=== PATIENT | female | born 1935 | race Caucasian/White ===

== ENCOUNTER 2022-02-18 21:05 | Inpatient (IN) | payer MEDICARE, BC ==
[~2022-02-18] VITALS: Ht 167.6 cm; Wt 69.9 kg
--- NOTE | 2022-02-18 20:30 | NUR ---
Received patient from [facility] via gurney accompanied by 2 EMT's. Awake, alert, very talkative, in no apparent distress. Transferred from [place] to bed with 3 people assist. Noted some tremors on both hands and lower face. Oriented to staffs, room, TV and bed controls/remote. Multiple bruises, skin tears and abrasions noted mostly on the right side. Stitches on right eyebrow intact. Both knees swollen. Routine admission care done. Plan of care initiated. VS taken and recorded.
[2022-02-18 21:12] VITALS: BP 165/77
[2022-02-18] MEDS ORDERED: SIMV10TA98 PO (22:29)
[2022-02-18] MEDS ORDERED: CYAN100085 IM (22:29)
[2022-02-18] MEDS ORDERED: LOSA50TA39 PO (22:29)
[2022-02-18] MEDS ORDERED: ALPR0.5T8 PO (22:29)
[2022-02-18] MEDS ORDERED: GABA600T12 PO (22:29)
[2022-02-18] MEDS ORDERED: ESOM40CA PO (22:29)
[2022-02-18] MEDS ORDERED: ERGO500040 PO (22:29)
[2022-02-18] MEDS ORDERED: PRIM50TA27 PO (22:29)
[2022-02-19] MEDS: GABAPENTIN 300 MG CAPSULE PO SCH ×2 (00:57→20:45)
[2022-02-19] MEDS: SIMVASTATIN 10 MG TABLET PO SCH ×2 (00:57→20:45)
[2022-02-19] MEDS: LOSARTAN POTASSIUM 50 MG TABLET PO SCH ×2 (00:59→09:19)
[2022-02-19] MEDS: ALPRAZOLAM 0.5 MG TABLET PO PRN (00:59)
--- NOTE | 2022-02-19 06:39 | NUR ---
Patient very needy, demanding and always complaining about her room, calling it a "STORAGE ROOM". Attention seeker and very inpatient. Attended all needs. No complaint of pain presented. Minimum to maximum assist.
[2022-02-19] MEDS: REMEDY ESSENTIAL ZINC PASTE 113 GM TOP SCH ×2 (09:19→20:46)
[2022-02-19 11:52] VITALS: BP 139/76
[2022-02-19] MEDS ORDERED: FOLI1TAB94 PO (13:31)
[2022-02-19] MEDS ORDERED: ALEN70TA80 PO (13:31)
[2022-02-19 15:04] LABS: *BILIRUBIN,URIN NEGATIVE (NEGATIVE); *BLOOD, URINE NEGATIVE (NEGATIVE); *CLARITY,URINE CLEAR (CLEAR); *COLOR,URINE YELLOW (YELLOW); *KETONES,URINE 1+ (NEGATIVE); LEUKOCYTE ESTERASE ,URINE NEGATIVE (NEGATIVE); NITRITE, URINE NEGATIVE (NEGATIVE); UGLUCOSE NEGATIVE (NEGATIVE)
[2022-02-19 15:13] LABS: BACTERIA,URINE NONE SEEN /HPF (NONE SEEN); RBC,URINE 0-3 /HPF (0-3); SQUAMOUS EPITHELIAL CELL,UR FEW /HPF (NONE SEEN); WBC,URINE NONE SEEN /HPF (0-3)
[2022-02-19 16:00] VITALS: BP 111/70
--- NOTE | 2022-02-19 18:13 | NUR ---
Patient received care well throughout shift. Patient very demanding during shift, and often forgetful. Patient often needing reorientation and reeducation. Patient with PT/OT evaluation today and needing minimum to moderate assistance. Patient often needing reassurance they will be okay during stay at hospital. Urine sample sent during shift. Pending other results. Bed left in lowest position with call light within reach. Will endorse information to PM nurse.
--- NOTE | 2022-02-19 20:10 | NUR ---
Patient received in bed awake, able to answer questions appropriately, able to follow instructions but very forgetful. In no acute distress. Needs assessed and attended to. Call light placed within easy reach.
[2022-02-19 20:18] VITALS: BP 149/80
[2022-02-20 04:21] VITALS: BP 130/50
--- NOTE | 2022-02-20 06:51 | NUR ---
Patient slept well, easy to arouse able to relate needs to staff. No acute distress noted. No c/o pain. Needs attended. Maintained bed in locked and low position.
[2022-02-20 07:59] VITALS: BP 155/66
[2022-02-20] MEDS ORDERED: ALENDRONATE SODIUM 70 MG TABLET PO SCH (08:45)
[2022-02-20] MEDS ORDERED: GABAPENTIN 100 MG CAPSULE PO SCH (09:00)
[2022-02-20] MEDS: LOSARTAN POTASSIUM 50 MG TABLET PO SCH (09:51)
[2022-02-20] MEDS: FOLIC ACID 1 MG TABLET PO SCH (09:51)
[2022-02-20] MEDS: GABAPENTIN 100 MG CAPSULE PO SCH ×2 (09:51→12:34)
[2022-02-20] MEDS: PRIMIDONE 50 MG TABLET PO SCH ×3 (09:53→16:41)
[2022-02-20] MEDS: REMEDY ESSENTIAL ZINC PASTE 113 GM TOP SCH ×2 (09:59→21:39)
[2022-02-20] MEDS ORDERED: METHYL SALICYLATE/MENTHOL CREAM 28 GM TUBE TOP PRN (15:00)
[2022-02-20 16:11] VITALS: BP 141/71
--- NOTE | 2022-02-20 18:33 | NUR ---
Patient tolerated care well throughout shift. Patient seen by Dr. Zarate and patient able to express frustration. Appropriate orders placed by Doctor for associated continuation of care; x-rays and medication. Awaiting proper placement of patient into another room to have patient closer to nurses station but still be able to receive therapy. Bed left in lowest position with call light within reach. Comfort measures provided. Will endorse information to PM nurse.
--- NOTE | 2022-02-20 19:45 | NUR ---
Received patient in bed awake alert and oriented x3, forgetful. No acute distress noted, denies chest pain. Kept bed in low and locked position. Call light placed within easy reach.
[2022-02-20] MEDS: GABAPENTIN 300 MG CAPSULE PO SCH (20:57)
[2022-02-20] MEDS: SIMVASTATIN 10 MG TABLET PO SCH (20:57)
[2022-02-21 04:47] VITALS: BP 158/75
--- NOTE | 2022-02-21 07:10 | NUR ---
Asleep most of the times since 0, easy to arouse. In no acute distress. No signs of pain or discomfort. Needs attended. Call light kept within easy reach.
[2022-02-21 07:48] VITALS: BP 137/87
[2022-02-21 07:49] LABS: HEMATOCRIT 38.4 % (31.2-41.9); MEAN CORPUSCULAR VOLUME 89.6 fL (75.5-95.3); PLATELET COUNT (AUTO) 189 K/uL (179-408)
[2022-02-21 08:08] LABS: THYROID STIMULATING HORMONE 1.573 mIU/mL (0.358-3.740)
--- NOTE | 2022-02-21 08:08 | NUR ---
INDIVIDUALIZED PLAN OF CARE
[2022-02-21 08:15] LABS: ALANINE AMINOTRANSFERASE 44 U/L (14-59); ALKALINE PHOSPHATASE 69 U/L (50-136); ASPARTATE AMINOTRANSFERASE 43 U/L (15-37); BILIRUBIN,TOTAL 0.3 mg/dL (0.2-1.0); CARBON DIOXIDE 31 mmol/L (21-32); CHLORIDE 105 mmol/L (98-107); CHOLESTEROL 212 mg/dL (<200); CREATININE 0.5 mg/dL (0.6-1.3); GLUCOSE 90 mg/dL (74-106); HDL CHOLESTEROL 68 mg/dL (40-60); PHOSPHOROUS 3.8 mg/dL (2.5-4.9); POTASSIUM 4.1 mmol/L (3.5-5.1); TOTAL PROTEIN, SERUM 6.2 g/dL (6.4-8.2); TRIGLYCERIDES 48 MG/DL (30-150); UREA NITROGEN, BLOOD 15 mg/dL (7-18)
[2022-02-21] MEDS: PRIMIDONE 50 MG TABLET PO SCH ×3 (08:51→16:57)
[2022-02-21] MEDS: LOSARTAN POTASSIUM 50 MG TABLET PO SCH (08:51)
[2022-02-21] MEDS: FOLIC ACID 1 MG TABLET PO SCH (08:51)
[2022-02-21] MEDS: REMEDY ESSENTIAL ZINC PASTE 113 GM TOP SCH ×2 (08:52→20:46)
[2022-02-21 15:51] VITALS: BP 131/86
[2022-02-21] MEDS: ACETAMINOPHEN ES 500 MG TABLET PO PRN (19:58)
[2022-02-21] MEDS: SIMVASTATIN 20 MG TABLET PO SCH (20:45)
[2022-02-21] MEDS: GABAPENTIN 300 MG CAPSULE PO SCH (20:45)
[2022-02-21 20:50] VITALS: BP 112/67
[2022-02-22 04:38] VITALS: BP 138/61
[2022-02-22 08:29] VITALS: BP 156/72
[2022-02-22] MEDS: LOSARTAN POTASSIUM 50 MG TABLET PO SCH (08:57)
[2022-02-22] MEDS: FOLIC ACID 1 MG TABLET PO SCH (08:57)
[2022-02-22] MEDS: PRIMIDONE 50 MG TABLET PO SCH ×3 (08:57→17:36)
[2022-02-22] MEDS: REMEDY ESSENTIAL ZINC PASTE 113 GM TOP SCH ×2 (08:57→20:49)
[2022-02-22] MEDS: ENSURE ENLIVE (VAN) 240 ML LIQUID PO SCH (13:28)
[2022-02-22 16:41] VITALS: BP 115/52
[2022-02-22 20:18] VITALS: BP 139/84
[2022-02-22] MEDS: SIMVASTATIN 20 MG TABLET PO SCH (20:49)
[2022-02-22] MEDS: GABAPENTIN 300 MG CAPSULE PO SCH (20:49)
[2022-02-22] MEDS: ALPRAZOLAM 0.5 MG TABLET PO PRN (20:49)
[2022-02-23 04:15] VITALS: BP 148/70
[2022-02-23 08:05] VITALS: BP 152/62
[2022-02-23] MEDS: PRIMIDONE 50 MG TABLET PO SCH ×3 (08:48→17:16)
[2022-02-23] MEDS: FOLIC ACID 1 MG TABLET PO SCH (08:49)
[2022-02-23] MEDS: LOSARTAN POTASSIUM 50 MG TABLET PO SCH (08:49)
[2022-02-23] MEDS: ENSURE ENLIVE (VAN) 240 ML LIQUID PO SCH (08:49)
[2022-02-23] MEDS: REMEDY ESSENTIAL ZINC PASTE 113 GM TOP SCH ×2 (08:50→21:14)
[2022-02-23] MEDS ORDERED: ENSURE ENLIVE (VAN) 240 ML LIQUID PO SCH (09:00)
[2022-02-23] MEDS: ALPRAZOLAM 0.5 MG TABLET PO PRN ×2 (09:15→21:18)
[2022-02-23] MEDS: ACETAMINOPHEN ES 500 MG TABLET PO PRN (09:15)
--- NOTE | 2022-02-23 11:58 | NUR ---
WOUND CARE CONSULT: PT SLEEPING SOUNDLY AT THIS TIME. PT KNOWN TO HAVE HISTORY OF FALLS, FACIAL DISCOLORATION, SUTURED LACERATION TO RT EYEBROW AREA, RT ARM SKIN TEARS AND HEEL DEEP TISSUE INJURIES, ALL PRESENT ON ADMISSION. DR MARTINEZ AND DR MAC NOTIFIED OF PT REHAB ADMISSION. DISCUSSED SKIN PROTECTION WITH NURSING STAFF. MD IN AGREEMENT WITH PLAN OF CARE.
[2022-02-23 16:30] VITALS: BP 140/70
[2022-02-23 20:00] VITALS: BP 136/78
--- NOTE | 2022-02-23 21:05 | NUR ---
Patient refused to have her right eyebrow stitches removed at this time stating "too soon". Charge Nurse made aware.
[2022-02-23] MEDS: SIMVASTATIN 20 MG TABLET PO SCH (21:13)
[2022-02-23] MEDS: GABAPENTIN 300 MG CAPSULE PO SCH (21:13)
[2022-02-24] MEDS: ACETAMINOPHEN ES 500 MG TABLET PO PRN (00:25)
[2022-02-24 04:00] VITALS: BP 125/62
[2022-02-24 07:54] VITALS: BP 167/74
[2022-02-24] MEDS: PRIMIDONE 50 MG TABLET PO SCH ×3 (08:19→16:40)
[2022-02-24] MEDS: LOSARTAN POTASSIUM 50 MG TABLET PO SCH (08:19)
[2022-02-24] MEDS: FOLIC ACID 1 MG TABLET PO SCH (08:19)
[2022-02-24] MEDS: ENSURE ENLIVE (VAN) 240 ML LIQUID PO SCH (08:20)
[2022-02-24] MEDS: ERGOCALCIFEROL 50,000 UNIT CAPSULE PO SCH (08:21)
[2022-02-24] MEDS: REMEDY ESSENTIAL ZINC PASTE 113 GM TOP SCH ×2 (08:32→20:34)
[2022-02-24 16:19] VITALS: BP 147/72
[2022-02-24] MEDS: GABAPENTIN 300 MG CAPSULE PO SCH (20:33)
[2022-02-24] MEDS: SIMVASTATIN 20 MG TABLET PO SCH (20:34)
[2022-02-24 21:50] VITALS: BP 145/78
[2022-02-24] MEDS: ALPRAZOLAM 0.5 MG TABLET PO PRN (22:25)
[2022-02-25 04:00] VITALS: BP 131/64
[2022-02-25 09:16] VITALS: BP 130/63
[2022-02-25] MEDS: FOLIC ACID 1 MG TABLET PO SCH (09:30)
[2022-02-25] MEDS: PRIMIDONE 50 MG TABLET PO SCH ×3 (09:30→17:16)
[2022-02-25] MEDS: ENSURE ENLIVE (VAN) 240 ML LIQUID PO SCH ×5 (09:34→17:03)
[2022-02-25] MEDS: LOSARTAN POTASSIUM 50 MG TABLET PO SCH (09:34)
[2022-02-25] MEDS: REMEDY ESSENTIAL ZINC PASTE 113 GM TOP SCH ×2 (09:35→20:24)
[2022-02-25] MEDS ORDERED: ARGININE/GLUTAMINE/CALCIUM BMB 1 EACH POWD.PACK PO SCH (10:15)
[2022-02-25] MEDS: ARGININE/GLUTAMINE/CALCIUM BMB 1 EACH POWD.PACK PO SCH (13:42)
--- NOTE | 2022-02-25 16:06 | NUR ---
INTERDISCIPLINARY TEAM CONFERENCE
[2022-02-25 16:58] VITALS: BP 142/76
[2022-02-25 20:10] VITALS: BP 117/58
[2022-02-25] MEDS: GABAPENTIN 300 MG CAPSULE PO SCH (20:23)
[2022-02-25] MEDS: SIMVASTATIN 20 MG TABLET PO SCH (20:23)
[2022-02-25] MEDS: ACETAMINOPHEN ES 500 MG TABLET PO PRN (21:19)
[2022-02-26 04:55] VITALS: BP 101/51
--- NOTE | 2022-02-26 06:36 | NUR ---
Pt slept intermittently throughout the night, easily arousable for care. Complaint of mild pain on right eyebrow, Tylenol PRN given. No significant changes noted. All needs attended. Call light placed within reach. Will endorse to next shift for continuity of care.
[2022-02-26 07:30] VITALS: BP 123/54
[2022-02-26] MEDS: PRIMIDONE 50 MG TABLET PO SCH ×3 (09:05→16:24)
[2022-02-26] MEDS: FOLIC ACID 1 MG TABLET PO SCH (09:05)
[2022-02-26] MEDS: LOSARTAN POTASSIUM 50 MG TABLET PO SCH (09:07)
[2022-02-26] MEDS: ARGININE/GLUTAMINE/CALCIUM BMB 1 EACH POWD.PACK PO SCH (09:07)
[2022-02-26] MEDS: REMEDY ESSENTIAL ZINC PASTE 113 GM TOP SCH ×2 (09:07→21:01)
[2022-02-26] MEDS: ENSURE ENLIVE (VAN) 240 ML LIQUID PO SCH ×2 (09:07→17:22)
[2022-02-26] MEDS: CALCIUM CARBONATE 500 MG TAB.CHEW PO PRN (13:45)
[2022-02-26 16:06] VITALS: BP 112/85
--- NOTE | 2022-02-26 16:57 | NUR ---
patient has been good all day, no complains of pain, no distress, spoke to her son on the phone. Asked for tums for stomach pain because "she ate too much food" as she stated. Other than that, no complains, care is provided, needs are met.
[2022-02-26 20:18] VITALS: BP 144/69
[2022-02-26] MEDS: SIMVASTATIN 20 MG TABLET PO SCH (21:01)
[2022-02-26] MEDS: GABAPENTIN 300 MG CAPSULE PO SCH (21:01)
--- NOTE | 2022-02-26 23:00 | NUR ---
Pt seen and examined by Dr. Saleh with order to remove sutures. Right eyebrow sutures removed, procedure tolerated well by pt. Dressing on RUE also changed.
[2022-02-27 04:18] VITALS: BP 130/55
[2022-02-27 08:00] VITALS: BP 121/52
[2022-02-27] MEDS: FOLIC ACID 1 MG TABLET PO SCH (08:59)
[2022-02-27] MEDS: LOSARTAN POTASSIUM 50 MG TABLET PO SCH (08:59)
[2022-02-27] MEDS: ENSURE ENLIVE (VAN) 240 ML LIQUID PO SCH ×2 (08:59→16:53)
[2022-02-27] MEDS: ARGININE/GLUTAMINE/CALCIUM BMB 1 EACH POWD.PACK PO SCH (09:00)
[2022-02-27] MEDS: REMEDY ESSENTIAL ZINC PASTE 113 GM TOP SCH ×2 (09:00→20:28)
[2022-02-27] MEDS: PRIMIDONE 50 MG TABLET PO SCH ×3 (09:00→20:28)
[2022-02-27 15:18] VITALS: BP 121/79
[2022-02-27] MEDS: ALPRAZOLAM 0.5 MG TABLET PO PRN (16:05)
[2022-02-27] MEDS: SIMVASTATIN 20 MG TABLET PO SCH (20:28)
[2022-02-27] MEDS: GABAPENTIN 300 MG CAPSULE PO SCH (20:28)
[2022-02-27 21:29] VITALS: BP 103/68
[2022-02-28 05:10] VITALS: BP 141/62
[2022-02-28 08:00] VITALS: BP 126/51
[2022-02-28] MEDS: LOSARTAN POTASSIUM 50 MG TABLET PO SCH (09:16)
[2022-02-28] MEDS: FOLIC ACID 1 MG TABLET PO SCH (09:16)
[2022-02-28] MEDS: PRIMIDONE 50 MG TABLET PO SCH ×3 (09:17→18:04)
[2022-02-28] MEDS: ENSURE ENLIVE (VAN) 240 ML LIQUID PO SCH ×2 (09:18→18:05)
[2022-02-28] MEDS: ARGININE/GLUTAMINE/CALCIUM BMB 1 EACH POWD.PACK PO SCH (09:18)
[2022-02-28] MEDS: REMEDY ESSENTIAL ZINC PASTE 113 GM TOP SCH ×2 (09:20→20:57)
[2022-02-28 16:13] VITALS: BP 121/61
--- NOTE | 2022-02-28 20:45 | NUR ---
Patient in bed awake.able to make needs known.Denies pain or discomfort at this time. On Ra. Right eyebrow s/p sutures removed.Area clean and dry. No s/s of infection.Continue safety measures.Reinforced teaching to use call light for assistance.Will continue to monitor.
[2022-02-28] MEDS: GABAPENTIN 300 MG CAPSULE PO SCH (20:52)
[2022-02-28 20:53] VITALS: BP 132/48
[2022-02-28] MEDS: SIMVASTATIN 20 MG TABLET PO SCH (20:53)
[2022-03-01 04:49] VITALS: BP 126/55
[2022-03-01 07:34] VITALS: BP 137/59
[2022-03-01] MEDS: PRIMIDONE 50 MG TABLET PO SCH ×3 (08:18→17:11)
[2022-03-01] MEDS: FOLIC ACID 1 MG TABLET PO SCH (08:19)
[2022-03-01] MEDS: LOSARTAN POTASSIUM 50 MG TABLET PO SCH (08:21)
[2022-03-01] MEDS: ENSURE ENLIVE (VAN) 240 ML LIQUID PO SCH ×2 (08:23→17:11)
[2022-03-01] MEDS: ARGININE/GLUTAMINE/CALCIUM BMB 1 EACH POWD.PACK PO SCH (08:24)
[2022-03-01] MEDS: REMEDY ESSENTIAL ZINC PASTE 113 GM TOP SCH ×2 (08:24→22:20)
[2022-03-01 16:00] VITALS: BP 103/59
--- NOTE | 2022-03-01 19:30 | NUR ---
Received pt awake, alert and orientedx3. Pt in no acute distress. Pt hyperverbal. Safety and comfort provided. Will continue to monitor.
[2022-03-01] MEDS: SIMVASTATIN 20 MG TABLET PO SCH (21:12)
[2022-03-01] MEDS: ALPRAZOLAM 0.5 MG TABLET PO PRN (21:13)
[2022-03-01] MEDS: GABAPENTIN 300 MG CAPSULE PO SCH (21:13)
[2022-03-02 04:00] VITALS: BP 120/55
--- NOTE | 2022-03-02 05:35 | NUR ---
Pt slept intermittently throughout the night, easily arousable for care. Pt given Xanax 0.5mg at 2113H for anxiety and restlessness. After an hour pt calmer. No significant changes noted. All needs attended. Call light placed within reach. Will endorse to next shift for continuity of care.
[2022-03-02] MEDS: PRIMIDONE 50 MG TABLET PO SCH ×3 (08:54→16:47)
[2022-03-02] MEDS: FOLIC ACID 1 MG TABLET PO SCH (08:54)
[2022-03-02] MEDS: LOSARTAN POTASSIUM 50 MG TABLET PO SCH (09:00)
[2022-03-02] MEDS: REMEDY ESSENTIAL ZINC PASTE 113 GM TOP SCH ×2 (09:01→21:09)
[2022-03-02] MEDS: ENSURE ENLIVE (VAN) 240 ML LIQUID PO SCH ×2 (09:01→16:47)
[2022-03-02] MEDS: ARGININE/GLUTAMINE/CALCIUM BMB 1 EACH POWD.PACK PO SCH ×2 (09:01→16:47)
[2022-03-02] MEDS: CALCIUM CARBONATE 500 MG TAB.CHEW PO PRN (10:57)
[2022-03-02 11:36] VITALS: BP 128/69
[2022-03-02 15:19] VITALS: BP 117/59
[2022-03-02 20:00] VITALS: BP 121/57
[2022-03-02] MEDS: ALPRAZOLAM 0.5 MG TABLET PO PRN (21:08)
[2022-03-02] MEDS: SIMVASTATIN 20 MG TABLET PO SCH (21:08)
[2022-03-02] MEDS: GABAPENTIN 300 MG CAPSULE PO SCH (21:08)
[2022-03-03 07:00] VITALS: BP 115/49
--- NOTE | 2022-03-03 09:00 | NUR ---
PATIENT IS AWAKE ALERT AND ORIENTED DENIES PAIN OR DISCOMFORTS AT THIS TIME TX IN PROGRESS TO MULTIPLE SKIN TEAR AREAS ORDERED DENIES PAIN OR DISCOMFORTS CALL LIGHTS AND PERSONAL BELONGINGS ARE WITHIN EASY REACH WILL CONTINUE TO OBSERVE.
[2022-03-03] MEDS: FOLIC ACID 1 MG TABLET PO SCH (09:47)
[2022-03-03] MEDS: PRIMIDONE 50 MG TABLET PO SCH ×3 (09:47→17:44)
[2022-03-03] MEDS: LOSARTAN POTASSIUM 50 MG TABLET PO SCH (09:47)
[2022-03-03] MEDS: ERGOCALCIFEROL 50,000 UNIT CAPSULE PO SCH (09:50)
[2022-03-03] MEDS: REMEDY ESSENTIAL ZINC PASTE 113 GM TOP SCH ×2 (09:57→20:03)
[2022-03-03] MEDS: ARGININE/GLUTAMINE/CALCIUM BMB 1 EACH POWD.PACK PO SCH ×2 (09:57→17:44)
[2022-03-03] MEDS: ENSURE ENLIVE (VAN) 240 ML LIQUID PO SCH ×2 (09:57→17:44)
[2022-03-03 11:20] VITALS: BP 100/51
[2022-03-03 15:40] VITALS: BP 130/84
[2022-03-03] MEDS: SIMVASTATIN 20 MG TABLET PO SCH (20:02)
[2022-03-03] MEDS: GABAPENTIN 300 MG CAPSULE PO SCH (20:02)
[2022-03-03] MEDS: ALPRAZOLAM 0.5 MG TABLET PO PRN (20:02)
[2022-03-03 20:12] VITALS: BP 125/52
[2022-03-04 04:29] VITALS: BP 122/59
--- NOTE | 2022-03-04 06:10 | NUR ---
Very talkative,and needy. Wound care done to affected areas after picture taking. Slept late. All needs attended and met. No significant event reported all night.
[2022-03-04 08:00] VITALS: BP 121/56
[2022-03-04] MEDS: ARGININE/GLUTAMINE/CALCIUM BMB 1 EACH POWD.PACK PO SCH (08:49)
[2022-03-04] MEDS: ENSURE ENLIVE (VAN) 240 ML LIQUID PO SCH (08:49)
[2022-03-04 08:51] VITALS: BP 121/56
[2022-03-04] MEDS: PRIMIDONE 50 MG TABLET PO SCH ×2 (08:51→12:16)
[2022-03-04] MEDS: REMEDY ESSENTIAL ZINC PASTE 113 GM TOP SCH (08:51)
[2022-03-04] MEDS: LOSARTAN POTASSIUM 50 MG TABLET PO SCH (08:51)
[2022-03-04] MEDS: FOLIC ACID 1 MG TABLET PO SCH (08:51)
--- NOTE | 2022-03-04 09:57 | NUR ---
Patient to be discharged at 1400 by [facility] to home.
--- NOTE | 2022-03-04 14:45 | NUR ---
Patient discharged from unit at 1445. Discharge education provided.
== END 2022-03-04 14:46 | disposition home health service (06) | DRG 74 ==
PROVIDERS: ADMIT Physical Medicine & Rehabilitation Pain Medicine; ATTEND Physical Medicine & Rehabilitation Pain Medicine
DX: G62.9 Polyneuropathy, unspecified (principal); D68.59 Other primary thrombophilia; S01.111D Laceration without foreign body of right eyelid and periocular area, subsequent encounter; R29.6 Repeated falls; S40.811D Abrasion of right upper arm, subsequent encounter; S80.812D Abrasion, left lower leg, subsequent encounter; S80.811D Abrasion, right lower leg, subsequent encounter; W01.0XXD Fall on same level from slipping, tripping and stumbling without subsequent striking against object, subsequent encounter; Z91.81 History of falling; I10 Essential (primary) hypertension; E78.5 Hyperlipidemia, unspecified; R26.0 Ataxic gait; K21.9 Gastro-esophageal reflux disease without esophagitis; G25.0 Essential tremor; I70.90 Unspecified atherosclerosis; Z20.822 Contact with and (suspected) exposure to COVID-19; M19.90 Unspecified osteoarthritis, unspecified site; M81.0 Age-related osteoporosis without current pathological fracture; G89.29 Other chronic pain; R53.81 Other malaise; S90.32XD Contusion of left foot, subsequent encounter; S90.31XD Contusion of right foot, subsequent encounter; X58.XXXD Exposure to other specified factors, subsequent encounter
CPT/HCPCS: 36415; 73030; 73502; 73610; 73630; 83735; 84100; 84443; 85025; 87086; 97161; 97535-GO-CO; A6209; A9150

== ENCOUNTER 2023-02-07 15:56 | Inpatient (IN) | payer MEDICARE, BC ==
[~2023-02-07] VITALS: Ht 172.7 cm; Wt 54.4 kg
[~2023-02-07 15:56] MED LIST: ACET-2154 PO; ALEN70TA3 PO; BISA10SU61 RC; CARB1TAB21 PO; DICL100G31 TP; DOCU100C36 PO; ESOM40CA PO; FOLI1TAB94 PO; LOSA50TA39 PO; MAGN400O6 PO; MEGE400O4 PO; MELA3CAP2 PO; MULT-594 PO; NA P133E RC; PRIM50TA27 PO; ROPI1TAB6 PO; SIMV10TA98 PO; TEMA15CA PO
[2023-02-07] MEDS ORDERED: CRAN400C PO (16:54)
[2023-02-07 17:24] LABS: HEMATOCRIT 41.1 % (31.2-41.9); MEAN CORPUSCULAR HEMOGLOBIN 28.9 uug (24.7-32.8); PLATELET COUNT (AUTO) 245 K/uL (179-408)
--- NOTE | 2023-02-07 17:30 | NUR ---
BIB ambulance from facility, placed into room #2, placed on monitor, informed of plan of care at this time. No s/s of any distress noted at this time. Lab at bedside for draw, #20g established in left forearm, unable to draw blood at this time. Patient is alert and orient x3, no voiced c/o pain or discomfort at this time. Patient noted to have scattered bruises to BUE, LLE with scabbed areas noted, will continue to monitor.
[2023-02-07 17:32] LABS: CARBON DIOXIDE 28 mmol/L (21-32); CHLORIDE 101 mmol/L (98-107); CREATININE 0.4 mg/dL (0.6-1.3); POTASSIUM 3.9 mmol/L (3.5-5.1); UREA NITROGEN, BLOOD 12 mg/dL (7-18)
[2023-02-07 17:38] LABS: ALANINE AMINOTRANSFERASE 20 U/L (14-59); ALKALINE PHOSPHATASE 79 U/L (50-136); ASPARTATE AMINOTRANSFERASE 25 U/L (15-37); BILIRUBIN,DIRECT 0.1 mg/dL (0.0-0.2); BILIRUBIN,TOTAL 0.4 mg/dL (0.2-1.0); TOTAL PROTEIN, SERUM 7.1 g/dL (6.4-8.2)
--- NOTE | 2023-02-07 17:47 | NUR ---
Radiology at bedside.
[2023-02-07 17:59] LABS: THYROID STIMULATING HORMONE 2.043 mIU/mL (0.358-3.740)
--- NOTE | 2023-02-07 18:51 | NUR ---
Assisted on bedpan, urine collected and sent to lab.
[2023-02-07 18:54] LABS: *BILIRUBIN,URIN NEGATIVE (NEGATIVE); *BLOOD, URINE 1+ (NEGATIVE); *CLARITY,URINE SLIGHTLY CLOUDY (CLEAR); *COLOR,URINE YELLOW (YELLOW); *KETONES,URINE 2+ (NEGATIVE); *UROBILINOGEN,URINE 0.2 E.U./dl (NORMAL); LEUKOCYTE ESTERASE ,URINE 1+ (NEGATIVE); NITRITE, URINE POSITIVE (NEGATIVE); UGLUCOSE NEGATIVE (NEGATIVE)
--- NOTE | 2023-02-07 18:54 | NUR ---
Requested and given water.
--- NOTE | 2023-02-07 19:03 | NUR ---
Report given to Kristal, accepting nurse, patient remains stable.
--- NOTE | 2023-02-07 19:05 | NUR ---
REPORT RECEIVED FROM DASHA PARRISH. PT STABLE ON MONITOR WITH NAD OBSERVED.
[2023-02-07] MEDS ORDERED: CEFTRIAXONE /D5W 50ML IVPB **ER PYXIS IV ONE (20:37)
--- NOTE | 2023-02-07 20:38 | NUR ---
Dr. Jacinto on panel call with Clayton Bone NP.
[2023-02-07] MEDS ORDERED: CEFTRIAXONE 1 G in IV DEXTROSE 5% 50 ML IV ONE (20:45)
[2023-02-07] MEDS: SIMVASTATIN 10 MG TABLET PO SCH (21:00)
[2023-02-07] MEDS ORDERED: MAGNESIUM HYDROXIDE 30 ML LIQUID UDC PO PRN (21:00)
[2023-02-07] MEDS ORDERED: FLEET ENEMA 133 ML BOTTLE RC PRN (21:00)
[2023-02-07] MEDS: DOCUSATE SODIUM 100 MG CAPSULE PO SCH (21:00)
--- NOTE | 2023-02-07 21:15 | NUR ---
REPORT GIVEN TO CHERIE PARRISH.
--- NOTE | 2023-02-07 21:25 | NUR ---
PT PULLED HER IV OUT. WILL INSERT A NEW ONE.
[2023-02-07 22:00] VITALS: BP 155/86; TEMP 98.4; O2SAT 96
[2023-02-07] MEDS: PRIMIDONE 50 MG TABLET PO SCH (22:00)
--- NOTE | 2023-02-07 22:00 | NUR ---
Pt received from ER by brittni Pt arrived to room 311 with Kristal BUSCH-RN without IV access. Pt very agitated at this time not letting go her belongings. Refusing IV insertio. Pt will rest and in AM will try insertion. Pt assisted comfortable and fluids offered no aspiration observed. Pt has multiple bruises on bilateral arms. Continue monitoring condition WT 54 kg, VS 98.4 75 18 96% on RA, 155/86. Pt denies any pain at this time.
--- NOTE | 2023-02-07 22:00 | NUR ---
Pt. admitted to M/S 311 , under care of Dr. HILLMAN Belongs List completed
[2023-02-07] MEDS: MELATONIN 3 MG TABLET PO SCH (22:21)
[2023-02-07 23:41] LABS: BACTERIA,URINE MODERATE /HPF (NONE SEEN); SQUAMOUS EPITHELIAL CELL,UR FEW /HPF (NONE SEEN)
--- NOTE | 2023-02-08 | NUR ---
Called Board of [facility] at [phone].to get information about dates of PNA/Flu vaccination, Covid-19 vaccination dates, and power of prosecuting attorney or next of pino information, no answer left a message, morning nurse will follow up.
[2023-02-08 04:00] VITALS: BP 148/63; TEMP 97.6; O2SAT 96
--- NOTE | 2023-02-08 05:11 | NUR ---
Pt slept well during the night without interruption, HL placed n her right arm, patent for next Rocephin dose tonight. Pt incontinent in urine, tolerates well PO fluids, Pt observed bullock calm and cooperative in AM. Morning medication given, endorse care to incoming nurse
[2023-02-08] MEDS: PANTOPRAZOLE SODIUM 40 MG TABLET.DR PO SCH (06:15)
[2023-02-08] MEDS: PRIMIDONE 50 MG TABLET PO SCH ×3 (06:15→22:00)
[2023-02-08 06:38] LABS: HEMATOCRIT 41.5 % (31.2-41.9); MEAN CORPUSCULAR HEMOGLOBIN 29.3 uug (24.7-32.8); MEAN CORPUSCULAR VOLUME 86.3 fL (75.5-95.3); PLATELET COUNT (AUTO) 235 K/uL (179-408)
[2023-02-08 07:27] LABS: ALANINE AMINOTRANSFERASE 40 U/L (14-59); ALKALINE PHOSPHATASE 78 U/L (50-136); ASPARTATE AMINOTRANSFERASE 27 U/L (15-37); BILIRUBIN,TOTAL 0.4 mg/dL (0.2-1.0); CARBON DIOXIDE 28 mmol/L (21-32); CHLORIDE 100 mmol/L (98-107); CHOLESTEROL 178 mg/dL (<200); CREATININE 0.4 mg/dL (0.6-1.3); HDL CHOLESTEROL 75 mg/dL (40-60); MAGNESIUM 1.6 mg/dL (1.8-2.4); PHOSPHOROUS 3.2 mg/dL (2.5-4.9); POTASSIUM 3.8 mmol/L (3.5-5.1); TOTAL PROTEIN, SERUM 7.2 g/dL (6.4-8.2); TRIGLYCERIDES 38 MG/DL (30-150); UREA NITROGEN, BLOOD 9 mg/dL (7-18)
--- NOTE | 2023-02-08 07:45 | NUR ---
RECEIVED IN BED AWAKE ALERT AND ORIENTED DENIES PAIN OR DISCOMFORTS AT THIS TIME ON ROOM AIR WITH NO SHORTNESS OF BREATH RIGHT FOREARM WITH HEPLOCK INTACT WRAPPED WITH KIRLIX FOR SAFETY CALL LIGHT AND PERSOANL BELONGINGS ARE WITHIN EASY REACH AT THIS TIME WILL CONTINUE TO OBSERVE.
[2023-02-08 07:55] LABS: IRON, SERUM 70 ug/dL (50-175)
[2023-02-08] MEDS: MULTIVITAMINS,THERAPEUTIC TABLET PO SCH (08:34)
[2023-02-08] MEDS: FOLIC ACID 1 MG TABLET PO SCH (08:35)
[2023-02-08] MEDS: ropiniROLE 1 MG TABLET PO SCH (08:35)
[2023-02-08] MEDS: LOSARTAN POTASSIUM 50 MG TABLET PO SCH (08:36)
[2023-02-08] MEDS: CARBIDOPA/LEVODOPA 25-100MG TABLET PO SCH ×3 (08:45→17:11)
--- NOTE | 2023-02-08 08:47 | NUR ---
PATIENT REFUSED TO TAKE SINEMET STATED THAT HS EDOES NOT HAVE PARKINSONS DISEASE ALL ATTEMPTS TO CONVINCE HER FAILED WILL NOTIFY DR SIMS.
--- NOTE | 2023-02-08 09:20 | NUR ---
PATIENT IS REQUESTING FOR PUREED DIET STATED ITS DIFFICULT FOR HER TO TOLERATED HER SOFT DIET MD NOTIFIED WITH ORDER TO SWITCH TO PUREED DIET STARTING LUNCH AND NOTED.
[2023-02-08] MEDS ORDERED: MAGNESIUM SULFATE/D5W 100 ML IV SCH (10:00)
[2023-02-08 11:36] VITALS: BP 117/75; TEMP 98.4; O2SAT 100
--- NOTE | 2023-02-08 15:00 | NUR ---
VERY PARANOID TALKS INCESSANTLY REPEATS SELF OVER AND OVER AGAIN REASSURED WAS SEEN BY DR WALSH WITH NO NEW ORDERS AT THIS TIME.
[2023-02-08 16:41] VITALS: BP 133/67; TEMP 97.4; O2SAT 98
--- NOTE | 2023-02-08 18:00 | NUR ---
MAGNESSIUM LEVEL IS 1.6 WITH REPLACEMENT ORDER AND NOTED.SEEN BY DR SIMS AND DR NATHAN SPOKE WITH PATIENTS DAUGHTER AT LENGTH ON THE PHONE RE PLAN OF CARE WILL CONTINUE TO OBSERVE.
--- NOTE | 2023-02-08 19:50 | NUR ---
PATIENT AWAKE IN BED. YELLING AND SCREAMING. VERY AGITATED. PULLING ON HER IV, WHICH DISLODGED AND NOTED TO BE LEAKING. PATIENT IS VERY CONFUSED AND UNABLE TO REDIRECT. NOTIFIED MACHINE PACKAGE SEALER.
[2023-02-08] MEDS: LORAZEPAM 2 MG/1 ML VIAL IV PRN (19:54)
--- NOTE | 2023-02-08 20:00 | NUR ---
NEW IV STARTED TO LEFT FA. PATIENT GIVEN ATIVAN 0.5MG IV PRN PER TRAVEL SERVICE CONSULTANT FOR AGITATION. VS WNL. WILL CONTINUE TO MONITOR AND ASSESS. BED ALARM ON.
[2023-02-08 20:12] VITALS: BP 128/88; TEMP 98.2; O2SAT 96
[2023-02-08] MEDS: DOCUSATE SODIUM 100 MG CAPSULE PO SCH (20:51)
[2023-02-08] MEDS: MELATONIN 3 MG TABLET PO SCH (20:51)
[2023-02-08] MEDS: CEFTRIAXONE 1 G in IV DEXTROSE 5% 50 ML IV SCH (20:52)
[2023-02-08] MEDS: SIMVASTATIN 10 MG TABLET PO SCH (20:58)
[2023-02-08] MEDS ORDERED: DOCUSATE SODIUM 250 MG CAPSULE PO SCH (21:00)
--- NOTE | 2023-02-08 21:30 | NUR ---
PATIENT ASLEEP IN BED. NO RESP. DISTRESS NOTED. PATIENT UNABLE TO TAKE HS MEDICATIONS AT THIS TIME.
[2023-02-09 04:25] VITALS: BP 124/76; TEMP 98.3; O2SAT 95
[2023-02-09] MEDS: PANTOPRAZOLE SODIUM 40 MG TABLET.DR PO SCH (06:21)
[2023-02-09] MEDS: PRIMIDONE 50 MG TABLET PO SCH ×3 (06:21→21:28)
--- NOTE | 2023-02-09 08:00 | NUR ---
AWAKE ALERT BUT CONFUSED X3, INCOHERENT MOST OF THE MINE, RELUCTANT WITH MOST CARE. REQUIRES REALITY REORIENTATION. TOTAL MIN MAX ASSIST IN ALL AREAS OF ADLS. CLOSELY MONITORED
[2023-02-09] MEDS: CARBIDOPA/LEVODOPA 25-100MG TABLET PO SCH ×3 (08:24→17:09)
[2023-02-09] MEDS: MULTIVITAMINS,THERAPEUTIC TABLET PO SCH (08:25)
[2023-02-09] MEDS: ropiniROLE 1 MG TABLET PO SCH (08:25)
[2023-02-09] MEDS: FOLIC ACID 1 MG TABLET PO SCH (08:25)
[2023-02-09] MEDS: LOSARTAN POTASSIUM 50 MG TABLET PO SCH (08:25)
[2023-02-09 11:31] VITALS: BP 125/86; TEMP 97.5; O2SAT 98
--- NOTE | 2023-02-09 13:03 | NUR ---
WOUND CARE CONSULT: PT PRESENTS WITH RASHES TO BREASTFOLDS, BUTTOCKS, PERINEUM AND INNER THIGHS. PT WAS PREVIOUSLY AGITATED AND UNCOOPERATIVE PER NURSING STAFF. DISCUSSED SKIN PROTECTION AND RASH CARE WITH NURSING STAFF. IN AGREEMENT WITH PLAN OF CARE. Addendum: 02/09/23 at 1304 by ARCHANA MCGUIRE RN Amended: Links added.
--- NOTE | 2023-02-09 15:39 | NUR ---
Clinical SW Note: Social work consult was called to determine whether or not there is a DPOA for this patient. Pt presents as confused and was preoccupied with topics that did not appear to make sense. Pt required constant redirection during this SWs assessment. Per nurse Cabrera, received DPOA paperwork from patients sonGonzalo [phone] and he is the sole power of production machine tender for this patient. DPOA is active. Paperwork was placed inside the front of the chart. Per Gonzalo, patients daughterLaila does not have authority to make any decisions nor will he allow her to be consulted. Per case managers, Stacie Sandoval of [facility] [place] [facility] are accepting the patient to return once she is stable. Case management will need to obtain permission from DPOA regarding placement at discharge. SW will continue to follow-up and will provide assistance and guidance as needed. Report given to Deborah javed.
--- NOTE | 2023-02-09 16:28 | NUR ---
CONTINUE PLAN OF CARE, PHYSICAL THERAPY ORDERED. SEE NOTES
[2023-02-09 16:30] VITALS: BP 125/85; TEMP 97.8; O2SAT 94
[2023-02-09] MEDS: LORAZEPAM 2 MG/1 ML VIAL IV PRN (17:09)
[2023-02-09] MEDS: CLOTRIMAZOLE 1% CREAM 30 GM TUBE TOP SCH (17:11)
--- NOTE | 2023-02-09 19:30 | NUR ---
Received patient awake verbally responsive, patient calm and cooperative with care at this time, hand mittens in place, multiple episode of trying of removes IV lines, restless in bed, continue to re orient patient, denies pain at this time, kept clean and dry. cont to monitor.
[2023-02-09 20:00] VITALS: BP 110/64; TEMP 98; O2SAT 95
[2023-02-09] MEDS: CEFTRIAXONE 1 G in IV DEXTROSE 5% 50 ML IV SCH (20:51)
[2023-02-09] MEDS: SIMVASTATIN 10 MG TABLET PO SCH (20:52)
[2023-02-09] MEDS: DOCUSATE SODIUM 100 MG CAPSULE PO SCH (20:52)
[2023-02-09] MEDS: MELATONIN 3 MG TABLET PO SCH (20:53)
[2023-02-10 04:00] VITALS: BP 104/61; TEMP 97.8; O2SAT 95
[2023-02-10] MEDS: LORAZEPAM 2 MG/1 ML VIAL IV PRN ×2 (04:19→21:19)
--- NOTE | 2023-02-10 05:09 | NUR ---
Patient awake agitated, trashing both arms, tries pulled out iv lines, yelling and screaming, kept clean and dry, offer food and water but refused, given ativan 0.5mg iv for severe agitation, recheck hand mittens for placement and circulation, patient has small skin tear on right wrist results of agitation and thrashing both arms. service liaison representative Derrick notify.
[2023-02-10] MEDS: PRIMIDONE 50 MG TABLET PO SCH ×3 (05:55→21:11)
[2023-02-10] MEDS ORDERED: ALENDRONATE SODIUM 70 MG TABLET PO SCH (06:00)
[2023-02-10] MEDS: PANTOPRAZOLE SODIUM 40 MG TABLET.DR PO SCH (06:06)
[2023-02-10 07:22] LABS: HEMATOCRIT 39.7 % (31.2-41.9); MEAN CORPUSCULAR HEMOGLOBIN 29.5 uug (24.7-32.8); MEAN CORPUSCULAR VOLUME 87.5 fL (75.5-95.3); PLATELET COUNT (AUTO) 222 K/uL (179-408)
[2023-02-10 07:40] LABS: CARBON DIOXIDE 30 mmol/L (21-32); CHLORIDE 101 mmol/L (98-107); CREATININE 0.4 mg/dL (0.6-1.3); POTASSIUM 3.6 mmol/L (3.5-5.1); UREA NITROGEN, BLOOD 10 mg/dL (7-18)
[2023-02-10 08:00] VITALS: BP 148/79; TEMP 98; O2SAT 95
--- NOTE | 2023-02-10 08:00 | NUR ---
Received patient lying in bed awake, alert, cooperative at this time with mittens on both hands. IV site on RFA g.20 intact and clean No signs of distress, no SOB Vital signs taken and recorded Due medications given Observed accordingly, attended
[2023-02-10] MEDS: CLOTRIMAZOLE 1% CREAM 30 GM TUBE TOP SCH ×2 (08:49→17:15)
[2023-02-10] MEDS: LOSARTAN POTASSIUM 50 MG TABLET PO SCH (08:49)
[2023-02-10] MEDS: MULTIVITAMINS,THERAPEUTIC TABLET PO SCH (08:49)
[2023-02-10] MEDS: CARBIDOPA/LEVODOPA 25-100MG TABLET PO SCH ×3 (08:49→17:14)
[2023-02-10] MEDS: ropiniROLE 1 MG TABLET PO SCH (08:49)
[2023-02-10] MEDS: FOLIC ACID 1 MG TABLET PO SCH (08:49)
--- NOTE | 2023-02-10 10:31 | NUR ---
Seen patient lying comfortably in bed, calm and resting. Mittens taken off, observed patient from time to time.
[2023-02-10 11:54] VITALS: BP 129/83; TEMP 98.4; O2SAT 96
[2023-02-10] MEDS: SERTRALINE HCL 50 MG TABLET PO SCH (13:10)
--- NOTE | 2023-02-10 13:30 | NUR ---
Seen by physical therapist Due medications given Mittens taken off and observed, patient is cooperative and calm at this time Needs attended
[2023-02-10 16:00] VITALS: BP 132/61; TEMP 97.4; O2SAT 95
--- NOTE | 2023-02-10 18:35 | NUR ---
Patient's mittens was taken off, patient listen to simple commands, calm and cooperative Observed patient accordingly, provided safety measures Observed for behavioral changes Needs attended
--- NOTE | 2023-02-10 19:00 | NUR ---
Received patient awake but with episode of confusion, no complain of pain, a friend at bedside. Patient calm and resting on in bed, patient has multiple episode of asking to removed to IV lines, continue to reorient, cont to monitor.
[2023-02-10 20:15] VITALS: BP 122/81; TEMP 98.2; O2SAT 95
[2023-02-10] MEDS: DOCUSATE SODIUM 100 MG CAPSULE PO SCH (21:11)
[2023-02-10] MEDS: SIMVASTATIN 10 MG TABLET PO SCH (21:11)
[2023-02-10] MEDS: MELATONIN 3 MG TABLET PO SCH (21:12)
[2023-02-10] MEDS: CEFTRIAXONE 1 G in IV DEXTROSE 5% 50 ML IV SCH (21:13)
--- NOTE | 2023-02-10 21:50 | NUR ---
Patient restless kept asking to remove IV lines, orient patient that she needs it for IV antibiotic as ordered. Patient awake with confusion, unable to follow explanation due to mental health condition. Patient offered food and water, kept clean and dry but not effective, given ativan IV as ordered with help after 30 minutes, patient calm and cooperative with the care. cont to monitor.
[2023-02-10 21:52] VITALS: BP 147/78; O2SAT 96
[2023-02-11] VITALS (7 sets, daily range): BP systolic 125–173; BP diastolic 56–90; TEMP 97.1–98.2; O2SAT 94–97
[2023-02-11] MEDS: ACETAMINOPHEN 325 MG TABLET PO PRN ×2 (06:03→16:37)
[2023-02-11] MEDS: PANTOPRAZOLE SODIUM 40 MG TABLET.DR PO SCH (06:03)
[2023-02-11] MEDS: PRIMIDONE 50 MG TABLET PO SCH ×3 (06:03→22:29)
--- NOTE | 2023-02-11 06:46 | NUR ---
Patient awake, forgetfullness, patient talks about her past but not clear due to patient jumping from one topic to another topic, patient has flight of ideas and does not connect. Patient verbally responsive, no sob no chest pain, patient wanted to go home today, patient verbalized wanted her iv lines out, no further episode of climbing out of bed. cont to monitor.
[2023-02-11 07:09] LABS: HEMATOCRIT 39.6 % (31.2-41.9); MEAN CORPUSCULAR HEMOGLOBIN 29.4 uug (24.7-32.8); MEAN CORPUSCULAR VOLUME 87.2 fL (75.5-95.3); PLATELET COUNT (AUTO) 220 K/uL (179-408)
[2023-02-11 07:28] LABS: CARBON DIOXIDE 33 mmol/L (21-32); CHLORIDE 101 mmol/L (98-107); CREATININE 0.4 mg/dL (0.6-1.3); POTASSIUM 3.9 mmol/L (3.5-5.1); UREA NITROGEN, BLOOD 7 mg/dL (7-18)
[2023-02-11] MEDS: LOSARTAN POTASSIUM 50 MG TABLET PO SCH (08:25)
[2023-02-11] MEDS: ropiniROLE 1 MG TABLET PO SCH (08:25)
[2023-02-11] MEDS: FOLIC ACID 1 MG TABLET PO SCH (08:26)
[2023-02-11] MEDS: CARBIDOPA/LEVODOPA 25-100MG TABLET PO SCH ×3 (08:26→16:37)
[2023-02-11] MEDS: CLOTRIMAZOLE 1% CREAM 30 GM TUBE TOP SCH ×2 (08:26→17:04)
[2023-02-11] MEDS: MULTIVITAMINS,THERAPEUTIC TABLET PO SCH (08:26)
[2023-02-11] MEDS: SERTRALINE HCL 50 MG TABLET PO SCH (13:17)
--- NOTE | 2023-02-11 14:54 | NUR ---
Received patient lying in bed awake, alert, forgetful and confused with flights of ideas No signs of distress, no SOB. Vital signs taken and recorded Due medications given Observed accordingly, needs attended
[2023-02-11] MEDS: CLONIDINE HCL 0.1 MG TABLET PO SCH ×2 (16:37→22:37)
--- NOTE | 2023-02-11 16:37 | NUR ---
Patient blood pressure is high 155/89 repeated BP 173/90, informed Heather Andres FILLER SHREDDER MACHINE and ordered Clonidine 0.1mg q8 for BP>150. Medication given and recorded as ordered. Observed patient for any untoward signs and symptoms.
--- NOTE | 2023-02-11 19:35 | NUR ---
Received patient in bed, awake with confusion, constantly talking about different topic about her past, but it's hard to understand due patient jumps from story to another. re orient patient but not effective, Patient has multiple attempt of pulling out IV lines, frequent visual check done, cont to monitor.
[2023-02-11] MEDS: MELATONIN 3 MG TABLET PO SCH (20:21)
[2023-02-11] MEDS: CEFTRIAXONE 1 G in IV DEXTROSE 5% 50 ML IV SCH (20:21)
[2023-02-11] MEDS: SIMVASTATIN 10 MG TABLET PO SCH (20:21)
[2023-02-11] MEDS: DOCUSATE SODIUM 100 MG CAPSULE PO SCH (20:22)
[2023-02-11] MEDS: LORAZEPAM 2 MG/1 ML VIAL IV PRN (20:38)
--- NOTE | 2023-02-11 20:40 | NUR ---
Patient agitated, yelling and continuously call out the staff to removed her IV lines, check patient IV line, and its in place, no infiltration noted, kept clean dry, reposition, offer food and water but not effective, Patient confused and uncooperative with care, resistive to care, given Ativan IV as ordered, cont to monitor.
--- NOTE | 2023-02-12 | NUR ---
Patient asleep, no s/s of sob , no s/s of chest pain, IV site patent and intact, no s/s of infiltration noted, patient has paper thin skin, admitted with multiple bruise on both arms, hand, ativan iv effective at this time, kept clean dry and comfortable. cont to monitor.
[2023-02-12 04:00] VITALS: BP 149/76; TEMP 97.3; O2SAT 93
--- NOTE | 2023-02-12 04:20 | NUR ---
Patient complaining of burning on IV site, wanted IV lines to removed, patient gets agitated yelling screaming, check IV site with some redness, removed IV lines as per request, tries to reinsert new one but refused, will cont to encourage.
[2023-02-12] MEDS: ACETAMINOPHEN 325 MG TABLET PO PRN (04:44)
--- NOTE | 2023-02-12 05:53 | NUR ---
Patient awake with confusion, refused to has another IV site done, patient gets agitated, resistive to care, given Tylenol 650 mg via dariana pudding, cont to offer IV insertion. notify Rosama if patient can have Midline per patient request. .
[2023-02-12] MEDS: PRIMIDONE 50 MG TABLET PO SCH ×3 (06:00→21:02)
[2023-02-12] MEDS: CLONIDINE HCL 0.1 MG TABLET PO SCH (06:00)
[2023-02-12] MEDS: PANTOPRAZOLE SODIUM 40 MG TABLET.DR PO SCH (06:25)
--- NOTE | 2023-02-12 06:25 | NUR ---
Patient refused all 0600 medications, spits out the medication.
[2023-02-12 07:17] LABS: HEMATOCRIT 38.2 % (31.2-41.9); MEAN CORPUSCULAR HEMOGLOBIN 29.3 uug (24.7-32.8); MEAN CORPUSCULAR VOLUME 86.6 fL (75.5-95.3); PLATELET COUNT (AUTO) 192 K/uL (179-408)
[2023-02-12 07:23] LABS: CARBON DIOXIDE 31 mmol/L (21-32); CHLORIDE 102 mmol/L (98-107); CREATININE 0.3 mg/dL (0.6-1.3); POTASSIUM 3.3 mmol/L (3.5-5.1); UREA NITROGEN, BLOOD 4 mg/dL (7-18)
--- NOTE | 2023-02-12 08:00 | NUR ---
Received patient lying in bed awake, alert, confused and anxious. No signs of distress, no SOB. Vital signs taken and recorded. Due medications given but patient giving a hard time to take it. No IV catheter patient for insertion. Observed patient accordingly, safety measures applied. Needs attended Seen and examined by Dr. Schrader and Heather Andres FUEL CELL SYSTEMS ENGINEER Seen by physical therapist
[2023-02-12] MEDS: FOLIC ACID 1 MG TABLET PO SCH (09:59)
[2023-02-12] MEDS: ropiniROLE 1 MG TABLET PO SCH (09:59)
[2023-02-12] MEDS: CARBIDOPA/LEVODOPA 25-100MG TABLET PO SCH ×3 (09:59→16:39)
[2023-02-12] MEDS: MULTIVITAMINS,THERAPEUTIC TABLET PO SCH (09:59)
[2023-02-12] MEDS: LOSARTAN POTASSIUM 50 MG TABLET PO SCH (09:59)
[2023-02-12] MEDS ORDERED: POTASSIUM CHLORIDE 10 MEQ TAB.PRT.SR PO ONE (10:00)
[2023-02-12] MEDS: CLOTRIMAZOLE 1% CREAM 30 GM TUBE TOP SCH ×2 (10:03→16:40)
[2023-02-12 11:35] VITALS: BP 148/78; TEMP 97.6; O2SAT 94
--- NOTE | 2023-02-12 12:12 | NUR ---
Clinical Social Work Note This sign writer hand was following up on allegations from patient's daughter that the " DPOA is fake". Spoke with Juwan Chauhan, insurance legal assistant for [facility] ([phone]) and she advised that [facility] needs to honor the document since it is notarized and son is patient's agent for healthcare decisions.
--- NOTE | 2023-02-12 12:15 | NUR ---
Crisis Consult Note There was discussion of this patient being a possible candidate for GPS unit. Patient is very confused and appears to have dementia with possible delirium due to UTI and her medical condition. She also has Parkinsons which causes dementia. Patient is unlikely to benefit from any gerospychiatric unit. Son, LENNY needs to make decisions re placement since he has power of transactional attorney over patient per notarized document.. Patient was oriented to person possibly and made no sense upon evaluation. An accurate assessment could not be done due to patient's altered level of consciousness. Daughter and son are at odds and have not spoken for years. Will defer to case management to decide on appropriate placement for this patient.
[2023-02-12] MEDS ORDERED: CLONIDINE HCL 0.1 MG TABLET PO PRN (13:15)
[2023-02-12] MEDS: SERTRALINE HCL 50 MG TABLET PO SCH (13:22)
[2023-02-12] MEDS: ENSURE ENLIVE (VAN) 240 ML LIQUID PO SCH ×2 (13:22→16:40)
--- NOTE | 2023-02-12 16:21 | NUR ---
Seen patient from time to time, patient sitting in the bed comfortable and calm. Answered call light. Due medications given and tolerated. Attended
[2023-02-12 16:41] VITALS: BP 147/74; TEMP 97.6; O2SAT 94
[2023-02-12 20:00] VITALS: BP 152/89; TEMP 97.7; O2SAT 96
[2023-02-12] MEDS: SIMVASTATIN 10 MG TABLET PO SCH (20:07)
[2023-02-12] MEDS: DOCUSATE SODIUM 100 MG CAPSULE PO SCH (20:08)
[2023-02-12] MEDS: MELATONIN 3 MG TABLET PO SCH (20:09)
[2023-02-12] MEDS: CEFTRIAXONE 1 G in IV DEXTROSE 5% 50 ML IV SCH (20:16)
[2023-02-12] MEDS: TEMAZEPAM 15 MG CAPSULE PO PRN (21:27)
[2023-02-13] MEDS: ACETAMINOPHEN 325 MG TABLET PO PRN (05:15)
[2023-02-13] MEDS: PRIMIDONE 50 MG TABLET PO SCH ×3 (05:16→21:02)
[2023-02-13 05:28] VITALS: BP 148/88; TEMP 98.2; O2SAT 96
[2023-02-13] MEDS: PANTOPRAZOLE SODIUM 40 MG TABLET.DR PO SCH (06:16)
[2023-02-13] MEDS: MULTIVITAMINS,THERAPEUTIC TABLET PO SCH (08:46)
[2023-02-13] MEDS: ropiniROLE 1 MG TABLET PO SCH (08:46)
[2023-02-13] MEDS: CARBIDOPA/LEVODOPA 25-100MG TABLET PO SCH ×3 (08:46→17:12)
[2023-02-13] MEDS: FOLIC ACID 1 MG TABLET PO SCH (08:46)
[2023-02-13] MEDS: LOSARTAN POTASSIUM 50 MG TABLET PO SCH (08:46)
[2023-02-13] MEDS: CLOTRIMAZOLE 1% CREAM 30 GM TUBE TOP SCH ×2 (08:47→17:13)
[2023-02-13] MEDS: ENSURE ENLIVE (VAN) 240 ML LIQUID PO SCH ×3 (08:53→17:12)
--- NOTE | 2023-02-13 09:38 | NUR ---
Patient is very confused. She is found lying comfortably in hospital bed. Patient is alert and oriented x1-2. She is saying things that makes no sense. Patient was able to do some exercise?walk with PT. All morning medications given, taken whole. Breakfast not taken, patient refused that she only takes pureed food. Doctor placed order for Pureed diet. She is currently resting. Sn, will continue to monitor.
[2023-02-13 12:00] VITALS: BP 152/86; TEMP 98.3; O2SAT 96
[2023-02-13] MEDS: SERTRALINE HCL 50 MG TABLET PO SCH (13:02)
[2023-02-13 15:57] VITALS: BP 147/97; TEMP 98.8; O2SAT 98
--- NOTE | 2023-02-13 19:30 | NUR ---
NSG: Received patient lying in bed awake, alert, confused and forgetful. No signs of distress, no SOB. Vital signs taken and recorded, daughter called and talks to the patient. assisted with adl's. denies pain and discomfort at this time.call light w/in reach.
[2023-02-13 20:00] VITALS: BP 150/90; TEMP 97.1; O2SAT 95
[2023-02-13] MEDS: MELATONIN 3 MG TABLET PO SCH (20:24)
[2023-02-13] MEDS: SIMVASTATIN 10 MG TABLET PO SCH (20:24)
[2023-02-13] MEDS: DOCUSATE SODIUM 100 MG CAPSULE PO SCH (20:24)
[2023-02-13] MEDS: TEMAZEPAM 15 MG CAPSULE PO PRN (23:14)
--- NOTE | 2023-02-14 01:00 | NUR ---
NSG: Patient awake some confusion noted stated i don't want go no where i am fine in this house,Reorientation provided., refused to has another IV site done, Patient pulled midline at 1830 pm per day shift nurse. patient gets agitated, cont to offer IV insertion. assisted with adl's. call light w/in reach.
[2023-02-14 04:00] VITALS: BP 152/86; TEMP 98.2; O2SAT 96
--- NOTE | 2023-02-14 04:30 | NUR ---
nsg: patient slept well through the night after sleeping meds given. awake now still confused. assisted with adl's. call light w/in reach.
[2023-02-14] MEDS: PRIMIDONE 50 MG TABLET PO SCH ×3 (05:24→22:18)
[2023-02-14] MEDS: PANTOPRAZOLE SODIUM 40 MG TABLET.DR PO SCH (06:04)
[2023-02-14 06:22] LABS: HEMATOCRIT 40.8 % (31.2-41.9); MEAN CORPUSCULAR HEMOGLOBIN 29.1 uug (24.7-32.8); MEAN CORPUSCULAR VOLUME 87.2 fL (75.5-95.3); PLATELET COUNT (AUTO) 211 K/uL (179-408)
[2023-02-14 06:43] LABS: CARBON DIOXIDE 30 mmol/L (21-32); CHLORIDE 101 mmol/L (98-107); CREATININE 0.4 mg/dL (0.6-1.3); POTASSIUM 3.4 mmol/L (3.5-5.1); UREA NITROGEN, BLOOD 12 mg/dL (7-18)
[2023-02-14] MEDS: FOLIC ACID 1 MG TABLET PO SCH (08:45)
[2023-02-14] MEDS: ropiniROLE 1 MG TABLET PO SCH (08:45)
[2023-02-14] MEDS: MULTIVITAMINS,THERAPEUTIC TABLET PO SCH (08:45)
[2023-02-14] MEDS: CARBIDOPA/LEVODOPA 25-100MG TABLET PO SCH ×3 (08:45→17:38)
[2023-02-14] MEDS: LOSARTAN POTASSIUM 50 MG TABLET PO SCH (08:53)
[2023-02-14] MEDS: CLOTRIMAZOLE 1% CREAM 30 GM TUBE TOP SCH ×2 (08:58→17:33)
[2023-02-14] MEDS: ENSURE ENLIVE (VAN) 240 ML LIQUID PO SCH ×3 (09:18→17:33)
[2023-02-14] MEDS: MELATONIN 3 MG TABLET PO SCH (10:14)
[2023-02-14 11:03] VITALS: BP 136/71; TEMP 97.6; O2SAT 95
[2023-02-14] MEDS: SERTRALINE HCL 50 MG TABLET PO SCH (13:22)
[2023-02-14] MEDS ORDERED: POTASSIUM CHLORIDE 20 MEQ TAB.PRT.SR PO ONE (14:00)
[2023-02-14 16:14] VITALS: BP 155/78; TEMP 97.6; O2SAT 94
--- NOTE | 2023-02-14 16:42 | NUR ---
Patient is verbal, awake in hospital bed. She is alert and oriented x2 with confusions and at time can make sense. She is on room air. No distress nor discomfort noted. Respiration even unlabored. Patient took morning medications crushed mixed with low fat chocolate pudding. Assist with diaper reilly and per wick placed. Patient reposition to comfort. She is resting comfortably. Will continue to monitor on same plan of care.
[2023-02-14 20:15] VITALS: BP 158/86; TEMP 98.3; O2SAT 94
[2023-02-14] MEDS: DOCUSATE SODIUM 100 MG CAPSULE PO SCH (22:17)
[2023-02-14] MEDS: SIMVASTATIN 10 MG TABLET PO SCH (22:17)
[2023-02-14] MEDS: TEMAZEPAM 15 MG CAPSULE PO PRN (22:18)
--- NOTE | 2023-02-15 00:57 | NUR ---
PT ASLEEP AFTER GIVEN MEDICATION CRUSHED IN PUDDING PT REPOSITIONED ORDERED NO SIGN OF DISTRESS NOTED CALL LIGHT WITHIN REACH BED IN LOW POSITION NO S/S OF DISTRESS, AND ALL NEEDS ATTENDED TO. WILL CONTINUE TO MONITOR FOR FALLS AND SAFETY. NO ADVERSE REACTION FROM MEDICATION,.
[2023-02-15 04:10] VITALS: BP 164/79; TEMP 98.2; O2SAT 94
[2023-02-15] MEDS: PRIMIDONE 50 MG TABLET PO SCH ×4 (06:17→21:56)
[2023-02-15] MEDS: PANTOPRAZOLE SODIUM 40 MG TABLET.DR PO SCH (06:17)
--- NOTE | 2023-02-15 06:50 | NUR ---
PT SLEPT DURING THE NIGHT NO SIGNS OF DISTRESS NOTED. AM MEDS GIVEN NO ADVERSE REACTION WILL ENDORSE TO AM NURSE.
[2023-02-15] MEDS: LOSARTAN POTASSIUM 50 MG TABLET PO SCH (08:10)
[2023-02-15] MEDS: CARBIDOPA/LEVODOPA 25-100MG TABLET PO SCH ×4 (09:00→17:55)
[2023-02-15] MEDS: CLOTRIMAZOLE 1% CREAM 30 GM TUBE TOP SCH ×2 (09:00→17:54)
[2023-02-15] MEDS: ropiniROLE 1 MG TABLET PO SCH (09:00)
[2023-02-15] MEDS: ENSURE ENLIVE (VAN) 240 ML LIQUID PO SCH ×3 (09:00→17:55)
[2023-02-15] MEDS: FOLIC ACID 1 MG TABLET PO SCH (09:00)
[2023-02-15] MEDS: MULTIVITAMINS,THERAPEUTIC TABLET PO SCH (09:00)
[2023-02-15 10:28] VITALS: BP 132/80; TEMP 97.6; O2SAT 98
[2023-02-15] MEDS ORDERED: PRIM50TA27 PO (11:00)
[2023-02-15] MEDS ORDERED: SERT-439 PO (11:01)
[2023-02-15 11:02] VITALS: BP 133/74; TEMP 98.5; O2SAT 95
[2023-02-15] MEDS: SERTRALINE HCL 50 MG TABLET PO SCH ×2 (13:00→14:10)
[2023-02-15 16:51] VITALS: BP 123/80; TEMP 98.1; O2SAT 96
--- NOTE | 2023-02-15 19:30 | NUR ---
Received patient laying in bed in no acute distress with family at bedside. Alert and oriented x1-2, often very confused and very forgetful. Patient on room air and no signs of shortness of breath noted. Will continue to monitor and continue plan of care.
[2023-02-15 20:20] VITALS: BP 123/79; TEMP 98.4; O2SAT 94
[2023-02-15] MEDS: SIMVASTATIN 10 MG TABLET PO SCH (21:12)
[2023-02-15] MEDS: MELATONIN 3 MG TABLET PO SCH (21:12)
[2023-02-15] MEDS: DOCUSATE SODIUM 100 MG CAPSULE PO SCH (21:12)
[2023-02-15] MEDS: TEMAZEPAM 15 MG CAPSULE PO PRN (23:08)
[2023-02-16 04:35] VITALS: BP 137/76; TEMP 98.3; O2SAT 96
[2023-02-16] MEDS: PRIMIDONE 50 MG TABLET PO SCH ×2 (06:17→13:08)
[2023-02-16] MEDS: PANTOPRAZOLE SODIUM 40 MG TABLET.DR PO SCH (06:17)
--- NOTE | 2023-02-16 06:58 | NUR ---
Patient rested well in between care. In no acute distress, needs attended to and met. Hourly rounding done. Continue to monitor and plan of care.
[2023-02-16] MEDS: CARBIDOPA/LEVODOPA 25-100MG TABLET PO SCH ×2 (08:32→13:08)
[2023-02-16] MEDS: ropiniROLE 1 MG TABLET PO SCH (08:32)
[2023-02-16] MEDS: MULTIVITAMINS,THERAPEUTIC TABLET PO SCH (08:32)
[2023-02-16] MEDS: LOSARTAN POTASSIUM 50 MG TABLET PO SCH (08:37)
[2023-02-16] MEDS: FOLIC ACID 1 MG TABLET PO SCH (08:38)
[2023-02-16] MEDS: ENSURE ENLIVE (VAN) 240 ML LIQUID PO SCH ×2 (08:38→13:08)
[2023-02-16] MEDS: CLOTRIMAZOLE 1% CREAM 30 GM TUBE TOP SCH (08:39)
[2023-02-16 11:03] VITALS: BP 123/68; TEMP 98.4; O2SAT 96
--- NOTE | 2023-02-16 12:55 | NUR ---
0730-Rec'd patient in bed, awake. AOx3-4, with confusion/forgetful, reality orientation provided as needed with some help. Patient on RA, no respiratory distress noted. Saturating well. Patient denies pain, call light within reach. Safety measures in place. 0900-Scheduled medications administered as ordered, no ASE noted. Oral fluids taken well. Patient eating breakfast and requires of one person's assist to be feed. Has history/dx or Parkinson's DSE and visible generalized tremors. Assist provided as needed. 1200-Patient with orders to be discharged to [facility]. Son at bedside. Teofilo PONCE) making routine rounds and spoke to patient and son regarding discharge, all questions answered and concerns addressed by Teofilo Ponce to both patient and son. 1300-Patient ready to be DC, VSS, ate lunch, was assisted with feeding by a [employer] student on the site. All paperwork for DC signed/ready.
[2023-02-16] MEDS: SERTRALINE HCL 50 MG TABLET PO SCH (13:08)
--- NOTE | 2023-02-16 14:38 | NUR ---
1416-Patient was discharged to [facility], report given to Jonel RESOLUTION ANALYST , Acute diagnosis/Hx and current patient's condition/diet & current medications taken/given informed to Jonel. Patient left via regular ambulance allergist/md, was placed safely in the [facility]. DC paperwork/belongings list signed/belongings taken. Family (a daughter and a son at bedside upon patient's DC. Patient left in stable conditions, denies pain, no respiratory distress, compliant with care/exit instructions provided.
--- NOTE | 2023-02-16 15:30 | NUR ---
Clinical Social Work Note Received phone call from Lincoln ), son, in [place]. Lincoln says he intends " to pramod the hospital" as he was not consulted regarding her discharge. He wanted to have her discharged to a facility of his choice. registration clerk spoke to Lincoln yesterday. He is disappointed that he was not called to a meeting today. Advised him that his siblings refused a meeting. Advised him that he could obtain a durable power of document review attorney for healthcare decisions and then can override his siblings' decisions regarding placement and this was suggested by our legal department. There is conflict over her trust of $3 million dollars. Son reports that this feud between siblings has been going on for many years. This senior mortgage underwriter tried to reassure him that his mother was discharged to a facility that could adequately provide for her care. Son reports that he has done a lot for patient over the years.
--- NOTE | 2023-02-16 16:30 | NUR ---
Clinical Social Work Note SonLincoln, requested a phone call from Dr Webster. Dr Webster spoke with this quality analyst/technical writer and agreed to call Lincoln sandoval at [phone].
== END 2023-02-16 14:40 | DRG 689 ==
LOC: ER 16:00 → MEDSURG3 21:49
PROVIDERS: ADMIT Internal Medicine; ATTEND Nurse Practitioner Acute Care
PROC: 05H633Z Insertion of Infusion Device into Left Subclavian Vein, Percutaneous Approach (ICD-10-PCS; principal; 2023-02-12)
PROC: B547ZZA Ultrasonography of Left Subclavian Vein, Guidance (ICD-10-PCS; 2023-02-12)
DX: N39.0 Urinary tract infection, site not specified (principal); G92.8 Other toxic encephalopathy; D68.69 Other thrombophilia; E44.0 Moderate protein-calorie malnutrition; F05 Delirium due to known physiological condition; F03.92 Unspecified dementia, unspecified severity, with psychotic disturbance; Z68.1 Body mass index [BMI] 19.9 or less, adult; F03.94 Unspecified dementia, unspecified severity, with anxiety; E78.5 Hyperlipidemia, unspecified; E88.09 Other disorders of plasma-protein metabolism, not elsewhere classified; G25.0 Essential tremor; K59.00 Constipation, unspecified; M19.90 Unspecified osteoarthritis, unspecified site; Z87.440 Personal history of urinary (tract) infections; F41.9 Anxiety disorder, unspecified; I25.10 Atherosclerotic heart disease of native coronary artery without angina pectoris; G62.9 Polyneuropathy, unspecified; Z74.09 Other reduced mobility; I10 Essential (primary) hypertension; F32.A Depression, unspecified; G20 Parkinson's disease; Z91.81 History of falling; R26.81 Unsteadiness on feet; F43.10 Post-traumatic stress disorder, unspecified; F60.9 Personality disorder, unspecified; B96.20 Unspecified Escherichia coli [E. coli] as the cause of diseases classified elsewhere
CPT/HCPCS: 36415; 71045; 82652; 83550; 83735; 84100; 84443; 85025; 93005; 97535-GO-CO; G0378; J0696; J2060; J3475; J8499